=== PATIENT | male | born 1955 | race Caucasian/White ===

== ENCOUNTER → 2020-06-30 12:44 | Outpatient (CLI) | payer OTHER, SELFPAY ==
--- NOTE | ~2020-06-30 | US_ITS ---
EXAMINATION: US retroperitoneal comp DATE: 06/30/2020 13:01 INDICATION: Chronic kidney disease, stage IIIa. TECHNIQUE: Multiple ultrasound grayscale images of the kidneys were obtained. COMPARISON: None. FINDINGS: The right kidney measures 10.0 x 4.2 x 5.2 cm. The left kidney measures 11.1 x 5.4 x 5.1 cm. The kidn eys demonstrate normal parenchymal echogenicity. There is no hydronephrosis. The bladder is normal. IMPRESSION: 1. Normal kidneys. No hydronephrosis. Reviewed, dictated and finalized at location A. [facility]
== END ==
PROVIDERS: PCP Internal Medicine; Visit Provider Internal Medicine
DX: N18.31 Chronic kidney disease, stage 3a (principal)
CPT/HCPCS: 76770

== ENCOUNTER → 2021-03-02 03:22 | Outpatient (CLI) | payer OTHER, SELFPAY ==
[2021-03-02 19:59] LABS: SARS-CoV-2 RNA PCR Negative
== END ==
PROVIDERS: PCP Internal Medicine; Visit Provider Internal Medicine Gastroenterology
DX: Z01.812 Encounter for preprocedural laboratory examination (principal); Z20.822 Contact with and (suspected) exposure to COVID-19
CPT/HCPCS: C9803; U0003; U0005

== ENCOUNTER 2021-03-05 00:38 | Day surgery (SDC) | payer OTHER, SELFPAY ==
[2021-02-18 13:30] VITALS: BMI 25.8
[2021-03-05 06:21] VITALS: BP 152/77; PULSE 51; RESP 18; TEMP 36.6; O2SAT 99
[2021-03-05] MEDS: LACTATED RINGERS 1,000 ML 150 ML IV CONT (06:31)
[2021-03-05 06:34] LABS: Glucose Point of Care 132 mg/dl (65-105)
--- NOTE | 2021-03-05 07:23 | WPDANESEPPF ---
Anes - Initial Pre Proc Eval Procedure: Operation Date: 03/05/21 07:30 Proposed Procedures p Screening Colonoscopy - Jean Claude Raya MD Date/Time: 03/05/21 07:23 Surgeon: Jean Claude Raya MD Pre Op Diagnosis: noeplasm screening Patient Data Age: 66 Gender: M Height: 1.73 m Weight: 77.5 kg Last Vital Signs Temp 97.9 F 03/05/21 06:21 Pulse 51 L 03/05/21 06:21 Resp 18 03/05/21 06:21 BP 152/77 H 03/05/21 06:21 Pulse Ox 99 03/05/21 06:21 Allergies Allergy/AdvReac Type Severity Reaction Status Date / Time No Known Allergies Allergy Verified 03/05/21 06:19 Home Medications Medication Instructions Recorded Confirmed Type ascorbic acid (vitamin C) 1,000 mg 1 gm PO DAILY 04/19/19 02/18/21 History tablet brinzolamide 1 %-brimonidine 0.2 % 1 drop EACH EYE BID 04/19/19 02/18/21 History eye drops,suspension lutein 25 mg-zeaxanthin 5 mg 1 cap PO DAILY 04/19/19 02/18/21 History capsule magnesium 250 mg tablet 250 mg PO DAILY 04/19/19 02/18/21 History zinc gluconate 100 mg tablet 100 mg PO DAILY 04/19/19 02/18/21 History cholecalciferol (vitamin D3) 50 50 mcg PO DAILY 10/18/19 02/18/21 History mcg (2,000 unit) capsule simvastatin 40 mg tablet 40 mg PO DAILY #90 tablet 06/25/20 02/18/21 Rx levothyroxine 75 mcg tablet 75 mcg PO DAILY #90 tablet 12/22/20 02/18/21 Rx amlodipine 2.5 mg tablet 2.5 mg PO DAILY #90 tablet 12/25/20 02/18/21 Rx fenofibrate 160 mg PO DAILY 02/18/21 02/18/21 History lisinopril 40 mg PO DAILY 02/18/21 02/18/21 History metformin 1,000 mg PO BID 02/18/21 02/18/21 History travoprost 1 drp EACH EYE HS 02/18/21 02/18/21 History Laboratory Tests 03/05/21 06:32 POC Capillary Glucose 132 mg/dl H mg/dl (65-105) Patient hx anesthesia problems: none Family hx anesthesia problems: none Results Review: All pre-operative results and documents have been reviewed as part of the pre-operative evaluation. [facility] Family History Family History (System 04/19/19 @ 09:07 by Debra Marion) Mother Diabetes mellitus Family history of glaucoma Hypertension Family history of malignant neoplasm Patient's mother is , Onset Age: 78 Father Family history of elevated blood lipids Family history of Parkinson's disease Grandparent Malignant neoplasm of prostate Family history of coronary artery disease Social History Social History (Updated 12/25/20 @ 09:20 by Makayla Carlos CNA) Smoking status: Never smoker Second hand tobacco smoke exposure: No Alcohol intake: current Drinks per week: 1 Substance use: never Living arrangements: alone Spiritual care concerns: No Anes - Eval Final PreProcedure Day of Procedure 03/05/21 07:23 Patient weight: normal Heart: regular rate and rhythm Lungs: clear to auscultation Airway: Mallampati scale class II Neurological: alert and oriented Last oral intake: >/= 8 hours ASA classification: III Emergent: no Anesthetic plan: proceed Anesthesia type and monitoring: general GIVS and standard monitoring Results Review: All pre-operative results and documents have been reviewed as part of the pre-operative evaluation. Informed Consent: The patient's anesthetic plan and its attendant risks and benefits were discussed with the patient/family/POA. Questions were solicited and answers provided to the satisfaction of the patient/family/POA.
--- NOTE | 2021-03-05 07:25 | WPDGICN ---
Assessment and Plan Assessment and plan (1) Encounter for screening colonoscopy: Code(s): Z12.11 - Encounter for screening for malignant neoplasm of colon Status: Acute Assessment and Plan: Patient presents for screening colonoscopy today. He appears to be at average risk for colon polyps. Further recommendations will be given after endoscopy. GI Consult Note Consult date/time: 03/05/21 07:25 HPI: Delano Kyle is a 66 year old male Presents for screening colonoscopy. Patient reports that his current weight appetite and bowel movements are normal. He denies abdominal pain. He has had no bleeding. Family history is noncontributory. His last colonoscopy was 10 years ago. [facility] Family History Family History (System 04/19/19 @ 09:07 by Debra Marion) Mother Diabetes mellitus Family history of glaucoma Hypertension Family history of malignant neoplasm Patient's mother is , Onset Age: 78 Father Family history of elevated blood lipids Family history of Parkinson's disease Grandparent Malignant neoplasm of prostate Family history of coronary artery disease Social History Social History (Updated 12/25/20 @ 09:20 by Makayla Carlos CNA) Smoking status: Never smoker Second hand tobacco smoke exposure: No Alcohol intake: current Drinks per week: 1 Substance use: never Living arrangements: alone Spiritual care concerns: No Meds Home Medications and Allergies Home Medications Medication Instructions Recorded Confirmed Type ascorbic acid (vitamin C) 1,000 mg 1 gm PO DAILY 04/19/19 02/18/21 History tablet brinzolamide 1 %-brimonidine 0.2 % 1 drop EACH EYE BID 04/19/19 02/18/21 History eye drops,suspension lutein 25 mg-zeaxanthin 5 mg 1 cap PO DAILY 04/19/19 02/18/21 History capsule magnesium 250 mg tablet 250 mg PO DAILY 04/19/19 02/18/21 History zinc gluconate 100 mg tablet 100 mg PO DAILY 04/19/19 02/18/21 History cholecalciferol (vitamin D3) 50 50 mcg PO DAILY 10/18/19 02/18/21 History mcg (2,000 unit) capsule simvastatin 40 mg tablet 40 mg PO DAILY #90 tablet 06/25/20 02/18/21 Rx levothyroxine 75 mcg tablet 75 mcg PO DAILY #90 tablet 12/22/20 02/18/21 Rx amlodipine 2.5 mg tablet 2.5 mg PO DAILY #90 tablet 12/25/20 02/18/21 Rx fenofibrate 160 mg PO DAILY 02/18/21 02/18/21 History lisinopril 40 mg PO DAILY 02/18/21 02/18/21 History metformin 1,000 mg PO BID 02/18/21 02/18/21 History travoprost 1 drp EACH EYE HS 02/18/21 02/18/21 History Allergies Allergy/AdvReac Type Severity Reaction Status Date / Time No Known Allergies Allergy Verified 03/05/21 06:19 Vital Signs Vital Signs - 24 hr 03/05/21 06:21 Temperature 97.9 F Pulse Rate 51 L Respiratory Rate 18 Blood Pressure 152/77 H Pulse Oximetry 99 Exam Narrative: Physical exam reveals patient be alert. Vital signs stable. HEENT exam is unremarkable. Patient is anicteric. Lungs are clear to auscultation and percussion. Heart is without murmur or extra sounds. Abdominal exam bowel sounds are present soft nontender with no hepatosplenomegaly. Digital external rectal exam is normal.
[2021-03-05 07:44] VITALS: BP 114/78; PULSE 53; RESP 18; O2SAT 97
[2021-03-05 07:54] VITALS: BP 117/83; PULSE 53; RESP 15; O2SAT 97
[2021-03-05 08:04] VITALS: BP 138/81; PULSE 49; RESP 13; O2SAT 98
== END 2021-03-05 08:14 | disposition home or self-care (01) ==
PROVIDERS: PCP Internal Medicine; Visit Provider Internal Medicine Gastroenterology
PROC: 0DJD8ZZ Inspection of Lower Intestinal Tract, Via Natural or Artificial Opening Endoscopic (ICD-10-PCS; CPT 45378; principal; 2021-03-05 07:30)
DX: Z12.11 Encounter for screening for malignant neoplasm of colon (principal); K64.8 Other hemorrhoids; E03.9 Hypothyroidism, unspecified; Z79.84 Long term (current) use of oral hypoglycemic drugs
CPT/HCPCS: G0121; 82948; C9803; J2704; J7120; U0003; U0005

== ENCOUNTER → 2021-09-29 11:05 | Outpatient (CLI) | payer OTHER, SELFPAY ==
--- NOTE | ~2021-09-29 | CT_ITS ---
EXAMINATION: CT abdomen pelvis wo con DATE: 09/29/2021 11:16 INDICATION: Hematuria TECHNIQUE: Computed tomography (CT) of the abdomen and pelvis was performed without intravenous contr ast. Automated exposure control and iterative reconstruction technique were employed. The dose-length product was 353.42 mGy-cm. COMPARISON: None FINDINGS: Lung bases are clear. Heart size is normal. No pericardial or pleural effusion. 8 cm cyst at the dome of the liver. There are few additional smaller hepatic cysts or complex largest measuring 1.5 cm. Ga llbladder, pancreas and bilateral adrenal glands are normal. Multiple splenic calcifications consiste nt with old granulomatous disease. Mild left hydroureteronephrosis which extends to the ureterovesicu lar junction with no evident obstructing stone. There does appear to be diffuse bladder wall thickeni ng which is most prominent in the left trigonal region and could not exclude malignancy. Right kidney and ureter are normal. No urolithiasis. Prostatomegaly. No abnormal bowel wall thickening or obstruc tion. Bilateral fat-containing inguinal hernias, small and direct on the right and moderate sized and direct on the left. No free intraperitoneal gas or fluid. No pathologically enlarged abdominal or pe lvic lymphadenopathy. Mild to moderate degenerative skeletal changes in the spine and pelvis. IMPRESSION: 1. No urolithiasis. Mild left hydroureteronephrosis which extends to the left ureterovesicular juncti on where there is some asymmetric wall thickening at the left trigonal region of the bladder raising concern for urothelial carcinoma. Recommend cystoscopy for further evaluation. 2. Bilateral fat-containing direct inguinal hernias, small on the right and moderate-sized on the lef t. 3. Prostatomegaly. Reviewed, dictated and finalized at location B. IMPRESSION: 1. No urolithiasis. Mild left hydroureteronephrosis which extends to the left u reterovesicular junction where there is some asymmetric wall thickening at the left trigonal region of the bladder raising concern for urothelial carcinoma. R ecommend cystoscopy for further evaluation. 2. Bilateral fat-containing direct inguinal hernias, small on the right and mod erate-sized on the left. 3. Prostatomegaly.
== END ==
PROVIDERS: PCP Internal Medicine; Visit Provider Internal Medicine
DX: R31.9 Hematuria, unspecified (principal)
CPT/HCPCS: 74176

== ENCOUNTER 2021-10-08 09:02 | Outpatient (CLI) | payer OTHER, SELFPAY ==
--- NOTE | 2021-10-08 09:16 | ECG_ITS ---
Measurements Intervals Bath Rate: 47 P: 56 UT: 143 QRS: 26 QRSD: 90 T: 28 QT: 416 QTc: 370 Interpretive Statements SINUS BRADYCARDIA BASELINE ARTIFACT BORDERLINE ECG NO PREVIOUS ECG AVAILABLE FOR COMPARISON Electronically Signed On 10-08-2021 17:46:00 CDT by Yon Bernal M.D.
[2021-10-08 09:40] LABS: Basophils Absolute Auto 0.1 K/mm3 (0.0-0.1); Basophils Percent Auto 1.5 % (0.2-1.2); Eosinophils Absolute Auto 0.2 K/mm3 (0-0.3); Eosinophils Percent Auto 3.5 % (0-4.4); Hematocrit 45.9 % (42.0-52.0); Hemoglobin 14.8 g/dL (14.0-18.0); Immature Granulocyte Absolute 0.04 K/mm3 (0.00-0.031); Immature Granulocyte Percent A 0.7 % (0-0.5); Lymphocytes Percent Auto 32.7 % (18.3-44.2); Mean Corpuscular HGB Conc 32.2 g/dl (32-36); Mean Corpuscular Hemoglobin 29.8 pg (26-34); Mean Corpuscular Volume 92.5 fl (80-100); Mean Platelet Volume 9.9 fl (7.4-10.4); Monocytes Absolute Auto 0.6 K/mm3 (0.1-0.6); Monocytes Percent Auto 10.2 % (2.6-8.5); Neutrophils Absolute Auto 2.8 K/mm3 (1.3-6.7); Neutrophils Percent Auto 51.4 % (45.5-73.1); Platelet Count Result 212 k/mm3 (150-375); Red Blood Count 4.96 M/mm3 (4.6-6.20); Red Cell Distribution Width 12.4 % (11.5-14.5); White Blood Count 5.5 K/mm3 (4.5-10.0)
[2021-10-08 09:51] LABS: Prothrombin Time 12.6 Seconds (11.1-14.7)
[2021-10-08 09:52] LABS: Partial Thromboplastin Time 26.3 SECONDS (22.3-36.8)
[2021-10-08 09:55] LABS: Anion Gap 7 mmol/L (8-16); Blood Urea Nitrogen 23 mg/dL (9-20); Calcium 9.3 mg/dL (8.4-10.2); Carbon Dioxide 27 mmol/L (22-30); Chloride 105 mmol/L (98-107); Estimated Glomerular Filt Rate > 60; Glucose 115 mg/dL (65-110); Potassium 4.4 mmol/L (3.4-5.0); Sodium 139 mmol/L (137-145)
== END 2021-10-08 09:03 | disposition home or self-care (01) ==
LOC: ANHSURGERY 09:05
PROVIDERS: PCP Internal Medicine; Visit Provider Urology
DX: N32.9 Bladder disorder, unspecified (principal); I10 Essential (primary) hypertension; Z01.818 Encounter for other preprocedural examination; R94.31 Abnormal electrocardiogram [ECG] [EKG]
CPT/HCPCS: 36415; 80048; 85025; 85610; 85730; 93005

== ENCOUNTER 2021-10-12 07:31 | Outpatient (CLI) | payer OTHER, SELFPAY ==
--- NOTE | ~2021-10-12 | CT_ITS ---
EXAMINATION: CT abdomen pelvis wo/w con DATE: 10/12/2021 08:05 INDICATION: Gross hematuria TECHNIQUE: Computed tomography (CT) of the abdomen and pelvis was performed without and subsequently with 130 CC Omnipaque 350 intravenous contrast. Automated exposure control and iterative reconstructi on technique were employed. Exam dose: 865.39 mGy-cm total exam DLP. COMPARISON: 09/25/2021 CT abdomen pelvis FINDINGS: The lung bases are clear. Normal heart size. No pericardial or pleural effusion. Scattered hepatic cysts are again noted including approximately 8 cm hepatic dome cyst. The gallbladder is present and appears unremarkable. No bile duct or pancreatic duct dilatation. No p ancreatic mass lesion or calcification. There are multiple calcified splenic granulomas consistent wi th old granulomatous disease. Normal splenic size. Normal morphology of the adrenal glands. Prostate enlargement and calcifications. There is diffuse thickening of the urinary bladder wall, pos sibly due to bladder outlet obstruction due to prostatomegaly. In addition, there is irregular soft tissue thickening along the posterior mid and left posterolatera l urinary bladder wall, apparently obstructing the distal left ureter with moderate left hydrouretero nephrosis as result. Urothelial bladder carcinoma is suspected. Differential diagnosis includes prost ate cancer. There are couple of left renal cortical cysts, the larger measuring up to 5.7 mm. No renal space occu pying mass lesion is noted otherwise. No urinary tract calculus is noted. Normal caliber of the abdominal aorta and iliac arteries. No intraperitoneal or retroperitoneal or pe lvic mass lesion or adenopathy or ascites is noted otherwise. Bilateral fat-containing inguinal hernias, left larger than right. Small fat-containing umbilical her mitzi. Normal appendix. No bowel obstruction, bowel wall thickening, pneumatosis or intraperitoneal free air . Diffuse idiopathic skeletal hyperostosis of the thoracic spine. Degenerative change at the apophyseal joints of the lumbar spine with associated grade 1 anterolisthe sis at L4-5. Bilateral hip osteoarthritis. No suspicious osteolytic or osteoblastic lesions are noted. IMPRESSION: Irregular soft tissue thickening of the posterior mid and posterolateral left urinary bl adder wall, likely due to urothelial bladder cancer; differential diagnosis is prostate cancer Prostate enlargement and calcifications Small left renal cortical cysts Bilateral inguinal hernias, small fat containing umbilical hernia Hepatic cysts Reviewed, dictated and finalized at Location A. Reviewed, dictated and finalized at location A. IMPRESSION: Irregular soft tissue thickening of the posterior mid and posterol ateral left urinary bladder wall, likely due to urothelial bladder cancer; diff erential diagnosis is prostate cancer Prostate enlargement and calcifications Small left renal cortical cysts Bilateral inguinal hernias, small fat containing umbilical hernia Hepatic cysts
== END 2021-10-12 07:32 | disposition home or self-care (01) ==
PROVIDERS: PCP Internal Medicine; Visit Provider Urology
DX: R31.0 Gross hematuria (principal); K76.89 Other specified diseases of liver; K40.90 Unilateral inguinal hernia, without obstruction or gangrene, not specified as recurrent; N28.1 Cyst of kidney, acquired
CPT/HCPCS: 74178; Q9967

== ENCOUNTER 2021-10-14 14:13 | Inpatient (IN) | payer OTHER, SELFPAY ==
[2021-10-07 13:53] VITALS: BMI 25.8
--- NOTE | 2021-10-07 14:11 | PC.NURSE ---
Report to the Outpatient Waiting Room, entrance under the green pavilion located off [facility], at time ___7:30____ on date __10/13/21 . OR Time: __9:30AM . - You and your visitor will be asked a series of questions to screen for COVID 19 for your protection. - Only one visitor is allowed at this time. - The patient visitor is requested to leave or wait in car when not with patient. - A mask is required within the hospital. Patients may have clear liquids (water, carbonated beverages, clear teas, apple juice) until 3 hours prior to surgery with a maximum of 20 ounces. - No food from midnight until time of surgery - Infants may have breast milk until 4 hours before surgery, formula 6 hours prior to surgery. - Children will be allowed to drink immediately following surgery. If applicable, please bring a bottle or sippy cup to assist with drinking. Juice, water, soda, and popsicles are readily available. For infants on formula, please bring formula the day of surgery. Pacifiers are allowed. Take the following medications with a SIP of water the morning of surgery: __EYE DROPS, LEVOTHYROXINE Medications to discontinue per physician ___HOLD ALL VITAMINS/SUPPLEMENTS 7 DAYS PRE-OP PER DR ABARCA Date to take last dose 10/06/21 Please no make-up, nail english, hairspray, perfume, deodorant, or body powder the day of surgery. No jewelry (including any body piercings) or valuables the day of surgery, leave them at home. Please take a shower or bath the night before, or the morning of, surgery with an antibacterial soap. Wear comfortable, loose fitting clothing. Children are encouraged to wear pajamas. - Jewelry must be removed prior to entering the operating room. Rings and piercings that are not removed may be cut off. - The hospital will not accept responsibility for valuables. - Please leave all valuables, including medications, at home the day of surgery. If you are going home after surgery, a licensed full service vending driver must drive you home. - NO public transportation without another adult. - We recommend that an adult stay with you for 24 hours following discharge. - We also recommend that you do not drive, make important decision, drink alcoholic beverages, or take any drugs that were not prescribed by your health care provider for at least 24 hours after your discharge time. For Pediatric surgeries, we recommend two adults accompany the child home (only one inside the building at this time). Follow any additional instructions given to you from your surgeon. If you or anyone in your household have experienced Covid symptoms in the past week, please notify your surgeon or the nurse liaison at the phone number below for possible testing. Telephone instructions given to __PATIENT and asked if any additional questions and then verbalized understanding. Patient advised to call surgeon office or pre surgery nurse liaison [phone] if any additional questions.
--- NOTE | 2021-10-12 13:43 | WPDANESEPPF ---
Anes - Initial Pre Proc Eval Procedure: Operation Date: 10/13/21 09:30 Proposed Procedures p Trans Urethral Resection Bladder Tumor, - Eugene Schmitz MD s Cystoscopy, Left Retrograde Pyelogram, Possible Left Ureteroscopy with Left Stent Placement - Eugene Schmitz MD Date/Time: 10/12/21 13:43 Surgeon: Eugene Schmitz MD Pre Op Diagnosis: bladder lesion, gross hematuria Patient Data Age: 66 Gender: M Height: 1.73 m Weight: 77 kg Allergies Allergy/AdvReac Type Severity Reaction Status Date / Time No Known Allergies Allergy Verified 10/13/21 07:44 Home Medications Medication Instructions Recorded Confirmed Type ascorbic acid (vitamin C) 1,000 mg 1 gm PO DAILY 04/19/19 10/07/21 History tablet brinzolamide 1 %-brimonidine 0.2 % 1 drop ophthalmic (eye) BID 04/19/19 10/13/21 History eye drops,suspension (Simbrinza) lutein 25 mg-zeaxanthin 5 mg 1 cap PO DAILY 04/19/19 10/07/21 History capsule magnesium 250 mg tablet 250 mg PO DAILY 04/19/19 10/07/21 History zinc gluconate 100 mg tablet 100 mg PO DAILY 04/19/19 10/07/21 History cholecalciferol (vitamin D3) 50 50 mcg PO DAILY 10/18/19 10/07/21 History mcg (2,000 unit) capsule travoprost 0.004 % eye drops 1 drp EACH EYE HS 02/18/21 10/07/21 History simvastatin 40 mg tablet 40 mg PO DAILY #90 tabs 06/09/21 10/07/21 Rx metformin 500 mg tablet 1,000 mg PO BID #360 tabs 06/30/21 10/07/21 Rx fenofibrate 160 mg tablet 160 mg PO DAILY #90 tabs 08/07/21 10/07/21 Rx levothyroxine 75 mcg tablet 75 mcg PO QAM 10/07/21 10/07/21 History lisinopril 40 mg tablet 40 mg PO QAM 10/07/21 10/07/21 History Patient hx anesthesia problems: none Family hx anesthesia problems: none Results Review: All pre-operative results and documents have been reviewed as part of the pre-operative evaluation. [facility] Past Medical History Medical History (Updated 10/12/21 @ 13:45 by Dieter Randolph MD) CKD (chronic kidney disease) stage 3, GFR 30-59 ml/min Diabetes Dyslipidemia Essential hypertension Glaucoma Hematuria Hypothyroidism Lesion of bladder Family History Family History Mother Diabetes mellitus Family history of glaucoma Hypertension Family history of malignant neoplasm Patient's mother is , Onset Age: 78 Father Family history of elevated blood lipids Family history of Parkinson's disease Grandparent Malignant neoplasm of prostate Family history of coronary artery disease Social History Social History Smoking status: Never smoker Second hand tobacco smoke exposure: No Alcohol intake: current Drinks per week: 1 Substance use: never Living arrangements: alone Spiritual care concerns: No Anes - Eval Final PreProcedure Day of Procedure 10/12/21 13:43 Patient weight: normal Heart: regular rate and rhythm Lungs: clear to auscultation Airway: Mallampati scale class II Neurological: alert and oriented Last oral intake: >/= 8 hours ASA classification: III Emergent: no Anesthetic plan: proceed Anesthesia type and monitoring: general LMA and standard monitoring Results Review: All pre-operative results and documents have been reviewed as part of the pre-operative evaluation. Informed Consent: The patient's anesthetic plan and its attendant risks and benefits were discussed with the patient/family/POA. Questions were solicited and answers provided to the satisfaction of the patient/family/POA.
[2021-10-13] VITALS (15 sets, daily range): BP systolic 104–165; BP diastolic 53–74; PULSE 46–76; RESP 14–20; TEMP 35.4–37.7; O2SAT 94–100; BMI 25.5
--- NOTE | 2021-10-13 07:09 | WPDHPUPDATE1 ---
History and Physical Update Update Date/Time: 10/13/21 07:09 History and Physical has been reviewed, including an updated exam of the patient. There are NO changes in the patient's condition. Risks, benefits, and alternatives have been discussed and questions answered. Patient agrees to proceed with procedure. Proceed with cysto, left retrograde, possible left ureteroscopy with stent placement.
[2021-10-13 07:42] LABS: Glucose Point of Care 118 mg/dl (65-105)
[2021-10-13] MEDS: LACTATED RINGERS 1,000 ML 30 ML IV CONT ×2 (07:51→10:02)
[2021-10-13] MEDS: ceFAZolin 2 GM/D5W 50 ML 2 GM/50 ML BAG IVPB (08:56)
[2021-10-13] MEDS: LIDOCAINE HCL 2% GEL UROJET 10 ML PKG MUCOUS MEM (09:37)
--- NOTE | 2021-10-13 09:58 | W.PM.PROC2 ---
Procedure Note - Detailed Date of Procedure 10/13/21 Pre-op Diagnosis bladder lesion, gross hematuria, left hydronephrosis Post-op Diagnosis Same Procedure Performed Cysto, transurethral section of bladder tumor large area, left retrograde pyelogram, left ureteral stent placement 6 Scottish contour Surgeon Eugene Schmitz MD Anesthesia General Description of Procedure Patient is taken the operative suite correctly identified. Once anesthesia was obtained was placed in dorsal lithotomy position and prepped and draped usual sterile fashion. Twenty-four Scottish resectoscope sheath inserted in the bladder. The bladder is inspected entirety. He has a tumor overlying the left ureteral orifice extending to the left lateral wall, along the mid trigone area, and near the bladder neck. The ureteral orifices not visualized. We resected all visible tumor. We were able to unroof the left ureteral orifice. We were able to manipulate a guidewire into it and advanced a [place] catheter. Pyelogram was then performed to confirm placement of the stent. Six Scottish contour stent was then placed with the proximal end coiled in the renal pelvis and the distal in the bladder. We then fulgurated the base of the tumor of any vessels that were oozing or bleeding. There appeared to be fairly good hemostasis. Bladder was drained. 2% viscous lidocaine was inserted urethra. [address] was placed with 15 cc in the balloon. This was connected to continuous bladder irrigation and patient is taken recovery stable condition. He will be admitted for CBI. Stent will need to be remain in place for approximately 6 weeks time. Will make a decision regarding removal in the OR with left ureteroscopy and retrograde pyelogram. Estimated Blood Loss 25 Drains Yes (Six Scottish contour left ureteral stent) Packing No Pathology Yes Complications No immediate complications Condition Stable Disposition PACU
[2021-10-13] MEDS: fentaNYL CITRATE INJ (*CRX) 100 MCG/2 ML VIAL 25 MCG IV PUSH ×8 (10:21→11:08)
[2021-10-13 10:43] LABS: Glucose Point of Care 155 mg/dl (65-105)
[2021-10-13] MEDS: KETOROLAC 30 MG/ML VIAL (*BKC) IV PUSH (11:05)
--- NOTE | 2021-10-13 12:01 | ADMGEN ---
This patient, Delano Kyle, was admitted to Medical Room 346-01. Patient/family oriented to hospital policies and general routines including ID bracelet, bed and alarms, visiting hours, pain management, procedures, bathroom and other care routines, personal items, smoking policy, room service/diet, and visiting hours. Information on how to activate the Rapid Response Team has been discussed. Patient/Family are encouraged to report perceived risks to care and to ask questions if they do not understand what they are told or what they should do.
[2021-10-13] MEDS: lisinopriL 20 MG TABLET 40 MG PO (12:37)
[2021-10-13] MEDS: SIMVASTATIN 20 MG TABLET 40 MG PO (12:37)
[2021-10-13 12:44] LABS: Glucose Point of Care 117 mg/dl (65-105)
[2021-10-13 16:29] LABS: Glucose Point of Care 139 mg/dl (65-105)
[2021-10-13] MEDS: metFORMIN HCL 500 MG TABLET 1000 MG PO (17:17)
[2021-10-13] MEDS: DOCUSATE SODIUM 100 MG CAPSULE PO (17:17)
[2021-10-13] MEDS: SODIUM CHLORIDE 0.9% IV 250 ML 10 ML (17:30)
[2021-10-13 20:57] LABS: Glucose Point of Care 81 mg/dl (65-105)
--- NOTE | ~2021-10-14 | XR_ITS ---
EXAMINATION: XR retrograde pyelo w/stent LT DATE: 10/13/2021 09:56 INDICATION: Left internal ureteral stent placement TECHNIQUE: Fluoroscopic images from a left internal ureteral stent placement are submitted for review . 17 seconds of fluoroscopy time. 2 fluoroscopic images FINDINGS: There is a left double-J internal ureteral stent projecting in expected position, with proximal [place] loop at the level of the renal pelvis and distal loop in the pelvis within the bladder lumen. IMPRESSION: 1. Left internal ureteral stent placement. Please refer to real-time procedural findings for detail s. Reviewed, dictated and finalized at location B. IMPRESSION: 1. Left internal ureteral stent placement. Please refer to real-time procedur al findings for details.
[2021-10-14 01:04] VITALS: BP 99/56; PULSE 50; RESP 16; TEMP 37.2; O2SAT 98
[2021-10-14 02:33] VITALS: BP 107/59
[2021-10-14 05:20] VITALS: BP 112/62; PULSE 48; RESP 16; TEMP 37.2; O2SAT 96
[2021-10-14] MEDS: LEVOTHYROXINE SODIUM 75 MCG TABLET PO (05:53)
[2021-10-14] MEDS: SIMVASTATIN 20 MG TABLET 40 MG PO (08:17)
[2021-10-14] MEDS: CEPHALEXIN 500 MG CAPSULE PO ×4 (08:18→20:00)
[2021-10-14] MEDS: metFORMIN HCL 500 MG TABLET 1000 MG PO ×2 (08:18→16:53)
[2021-10-14] MEDS: DOCUSATE SODIUM 100 MG CAPSULE PO ×2 (08:18→16:54)
[2021-10-14] MEDS: lisinopriL 20 MG TABLET 40 MG PO (08:18)
[2021-10-14 08:28] LABS: Glucose Point of Care 177 mg/dl (65-105)
--- NOTE | 2021-10-14 09:09 | WPDANESPN ---
Anes - Prog Note Post-Op Date/Time: 10/14/21 09:09 Cardiovascular status: normal Respiratory status: normal Airway patency: baseline Mental status: baseline Post-Op hydration status: normal Vital Signs: Last Vital Signs Temp 37.2 C 10/14/21 05:20 Pulse 48 L 10/14/21 05:20 Resp 16 10/14/21 05:20 BP 112/62 10/14/21 05:20 Pulse Ox 96 10/14/21 05:20 O2 Del Method Room Air 10/14/21 08:00 O2 Flow Rate 8 10/13/21 10:02 Pain Score (VAS): 2 I/O: Intake & Output 10/13/21 10/14/21 10/14/21 23:59 07:59 15:59 Intake Total 1100 550 360 Output Total 1350 1650 Balance -250 -1100 360 10/13/21 10/13/21 10/13/21 10:41 12:41 16:23 POC Capillary Glucose 155 H 117 H 139 H 10/13/21 10/14/21 20:53 08:21 POC Capillary Glucose 81 177 H Patient Feedback: Patient satisfied with anesthetic care.
[2021-10-14 10:22] VITALS: BP 122/73; PULSE 51; RESP 16; TEMP 36.8; O2SAT 97
[2021-10-14 11:36] LABS: Glucose Point of Care 110 mg/dl (65-105)
--- NOTE | 2021-10-14 13:04 | WPDUROPN2 ---
Progress Note: A&P Assessment and Plan (1) Lesion of bladder: Code(s): N32.9 - Bladder disorder, unspecified Status: Acute Assessment and Plan: Pathology pending. Patient will be notified of pathology in 3-5 days when resulted. He will keep his left stent in place for 6 weeks, then we will schedule a ureteroscopy with Dr. Schmitz at that time. I answered all of his questions, we will keep him on CBI until urine clears then taper CBI off. IF urine remains clear off CBI with activity, ok to keep off. Will re-assess tomorrow morning for discharge. (2) Hematuria: Qualifiers: Hematuria type: asymptomatic microscopic Qualified Code(s): R31.21 - Asymptomatic microscopic hematuria Code(s): R31.9 - Hematuria, unspecified Status: Acute Subjective Subjective Date/Time Seen: 10/14/21 13:04 The patient is doing well s/p Cystoscopy, TURBT and left retrograde pyelogram with stent placement. He is tolerating his hendricks, pain and diet well. He is up in the chair and has been moving around in his room without difficulty. He is currently on slow CBI, the CBI was turned off this morning but his urine quickly became bloody again, therefore CBI was restarted. Post Op day: 1 Review of Systems Constitutional: Constitutional: Denies fever(s), Denies lethargy and Denies weakness Cardiovascular: Cardiovascular: Denies chest pain Respiratory: Respiratory: Reports no additional respiratory complaints Gastrointestinal: Gastrointestinal: Denies abdominal pain, Denies nausea and Denies vomiting Genitourinary: Genitourinary: Reports hematuria and Denies flank pain Exam Const: General: comfortable, no acute distress, alert and Physically active Resp: Effort & Inspection: normal respiratory effort Cardio: Rate: regular rate GI: GI Palp: Yes Soft to palpation and No Tenderness to palpation present (GI) : General: Yes no CVA tenderness Urinary Catheter: Urinary Catheter: patent and draining, urine clear and urine pink Extrem: Right lower extremity: no edema Left lower extremity: no edema Objective Data Vital Signs Vital Signs: Vital Signs - 24 hr 10/13/21 13:35 10/13/21 17:35 10/13/21 20:00 Temperature 98.3 F 96 F L Pulse Rate 66 61 Respiratory Rate 16 16 Blood Pressure 125/53 L 127/64 Pulse Oximetry 100 100 Oxygen Delivery Room Air 10/13/21 22:00 10/13/21 23:26 10/14/21 01:04 Temperature 99.8 F H 97.9 F 98.9 F Pulse Rate 54 L 50 L Respiratory Rate 18 16 Blood Pressure 104/58 L 99/56 L Pulse Oximetry 96 98 Oxygen Delivery 10/14/21 02:33 10/14/21 05:20 10/14/21 08:00 Temperature 99.0 F Pulse Rate 48 L Respiratory Rate 16 Blood Pressure 107/59 L 112/62 Pulse Oximetry 96 Oxygen Delivery Room Air 10/14/21 10:22 Temperature 98.2 F Pulse Rate 51 L Respiratory Rate 16 Blood Pressure 122/73 Pulse Oximetry 97 Oxygen Delivery Intake/Output Intake/Output: Intake & Output 10/11/21 10/12/21 10/13/21 10/14/21 23:59 23:59 23:59 23:59 Intake Total 1350 1150 Output Total 5550 1650 Balance -4200 -500 Meds/Results Medications: Active Medications Generic Name Dose Route Start Last Admin Trade Name Freq PRN Reason Stop Dose Admin Hydrocodone Bitart/Acetaminophen 1 tab 10/13/21 11:35 Hydrocodone/Acetaminophen (*Crx) 5-325 Mg Tablet PO Q4H PRN Pain Rated 1-6 Cephalexin HCl 500 mg 10/14/21 09:00 10/14/21 08:18 Cephalexin 500 Mg Capsule PO 500 mg QID TAMRA Administration Docusate Sodium 100 mg 10/13/21 17:00 10/14/21 08:18 Docusate Sodium 100 Mg Capsule PO 100 mg BID TAMRA Administration Hyoscyamine 0.125 mg 10/13/21 11:35 Hyoscyamine Sulfate 0.125 Mg Tablet SUBLINGUAL Q6H PRN Bladder Spasm Levothyroxine Sodium 75 mcg 10/14/21 06:30 10/14/21 05:53 Levothyroxine Sodium 75 Mcg Tablet PO 75 mcg DAILY@0630 TAMRA Administration Lisinopril 40 mg 10/13/21 11:40
[2021-10-14 14:41] VITALS: BP 114/62; PULSE 49; RESP 16; TEMP 36.8; O2SAT 99
--- NOTE | 2021-10-14 15:06 | PC.NURSE ---
Urine draining clear again. Will run the rest of the current saline bag out and see if it turns bloody again. This will be the second attempt today. Patient is doing well, denies pain or discomfort. He was up in the chair the first half of the day. Currently having an afternoon nap.
[2021-10-14 16:40] LABS: Glucose Point of Care 93 mg/dl (65-105)
[2021-10-14 20:41] VITALS: BP 135/68; PULSE 45; RESP 16; TEMP 36.6; O2SAT 99
[2021-10-14 20:49] LABS: Glucose Point of Care 102 mg/dl (65-105)
[2021-10-15 04:54] VITALS: BP 114/66; PULSE 45; RESP 16; TEMP 36.6; O2SAT 97
[2021-10-15] MEDS: LEVOTHYROXINE SODIUM 75 MCG TABLET PO (05:33)
[2021-10-15 07:46] LABS: Glucose Point of Care 124 mg/dl (65-105)
[2021-10-15] MEDS: DOCUSATE SODIUM 100 MG CAPSULE PO ×2 (08:21→16:44)
[2021-10-15] MEDS: CEPHALEXIN 500 MG CAPSULE PO ×4 (08:21→21:15)
[2021-10-15] MEDS: lisinopriL 20 MG TABLET 40 MG PO (08:22)
[2021-10-15] MEDS: metFORMIN HCL 500 MG TABLET 1000 MG PO ×2 (08:22→16:44)
[2021-10-15] MEDS: SIMVASTATIN 20 MG TABLET 40 MG PO (08:22)
[2021-10-15 11:43] LABS: Glucose Point of Care 87 mg/dl (65-105)
[2021-10-15 14:55] VITALS: BP 118/63; PULSE 50; RESP 16; TEMP 36.6; O2SAT 100
--- NOTE | 2021-10-15 16:04 | WPDUROPN2 ---
Progress Note: A&P Assessment and Plan (1) Lesion of bladder: Code(s): N32.9 - Bladder disorder, unspecified Status: Acute Assessment and Plan: Pathology pending. Patient will be notified of pathology in 3-5 days when resulted. He will keep his left stent in place for 6 weeks, then we will schedule a ureteroscopy with Dr. Schmitz at that time. I answered all of his questions, we will keep him on CBI until urine clears then taper CBI off. IF urine remains clear off CBI with activity, ok to keep off. Will re-assess tomorrow morning for discharge. I turned CBI off this morning, but he continued to have gross hematuria off CBI for >4 hours, therefore he will remain on CBI overnight. Subjective Subjective Date/Time Seen: 10/15/21 16:04 S/P TURBT, Cystoscopy and left stent placement with left retrograde. The patient continues to do well, he tolerates diet and activity and c/o no pain. His urine remains bloody off CBI unfortunately. He is having some mild bladder spasms which are tolerable. Post Op day: 2 Review of Systems Respiratory: Respiratory: Reports no additional respiratory complaints Gastrointestinal: Gastrointestinal: Denies abdominal pain, Denies nausea and Denies vomiting Genitourinary: Genitourinary: Reports hematuria, Denies dysuria, Denies flank pain, Denies urinary frequency, Denies urinary hesitancy and Denies urinary urgency Exam Resp: Effort & Inspection: normal respiratory effort Cardio: Rate: regular rate GI: GI Palp: Yes Soft to palpation and No Tenderness to palpation present (GI) : General: Yes no CVA tenderness Urinary Catheter: Urinary Catheter: patent and draining and urine red Objective Data Vital Signs Vital Signs: Vital Signs - 24 hr 10/14/21 19:56 10/14/21 20:41 10/15/21 04:54 Temperature 98 F 98 F Pulse Rate 45 L 45 L Respiratory Rate 16 16 Blood Pressure 135/68 114/66 Pulse Oximetry 99 97 Oxygen Delivery Room Air 10/15/21 08:00 10/15/21 14:55 Temperature 97.8 F Pulse Rate 50 L Respiratory Rate 16 Blood Pressure 118/63 Pulse Oximetry 100 Oxygen Delivery Room Air Intake/Output Intake/Output: Intake & Output 10/12/21 10/13/21 10/14/21 10/15/21 23:59 23:59 23:59 23:59 Intake Total 1350 6261 480 Output Total 6161 4255 725 Balance -4200 2940 -762 Meds/Results Medications: Active Medications Generic Name Dose Route Start Last Admin Trade Name Freq PRN Reason Stop Dose Admin Hydrocodone Bitart/Acetaminophen 1 tab 10/13/21 11:35 Hydrocodone/Acetaminophen (*Crx) 5-325 Mg Tablet PO Q4H PRN Pain Rated 1-6 Cephalexin HCl 500 mg 10/14/21 09:00 10/15/21 12:59 Cephalexin 500 Mg Capsule PO 500 mg QID TAMRA Administration Docusate Sodium 100 mg 10/13/21 17:00 10/15/21 08:21 Docusate Sodium 100 Mg Capsule PO 100 mg BID TAMRA Administration Hyoscyamine 0.125 mg 10/13/21 11:35 Hyoscyamine Sulfate 0.125 Mg Tablet SUBLINGUAL Q6H PRN Bladder Spasm Levothyroxine Sodium 75 mcg 10/14/21 06:30 10/15/21 05:33 Levothyroxine Sodium 75 Mcg Tablet PO 75 mcg DAILY@0630 TAMRA Administration Lisinopril 40 mg 10/13/21 11:40 10/15/21 08:22 Lisinopril 20 Mg Tablet PO 40 mg QAM TAMRA Administration Metformin HCl 1,000 mg 10/13/21 17:00 10/15/21 08:22 Metformin Hcl 500 Mg Tablet PO 1,000 mg BID TAMRA Administration Morphine Sulfate 2 mg 10/13/21 11:35 Morphine Sulfate (*Crx) 2 Mg/Ml Inj IV PUSH Q2H PRN Pain Rated 7-10 Naloxone HCl 0.1 mg 10/13/21 11:35 Naloxone Hcl 0.4 Mg/Ml Vial IV PUSH Q2M PRN Opiate Reversal Ondansetron HCl 4 mg 10/13/21 11:35 Ondansetron Inj 4 Mg/2 Ml Vial IV PUSH Q12H PRN Nausea And Vomiting Simvastatin 40 mg 10/13/21 11:40 10/15/21 08:22 Simvastatin 20 Mg Tablet PO 40 mg DAILY TAMRA Administration Radiology Results: ITS Impressions Retrograde Pyelogram 10/13/21 10:00 IMP
--- NOTE | 2021-10-15 16:16 | PM.DS ---
DS: Admitting Diagnosis Discharge Date bladder lesion Admitting Diagnosis bladder lesion DS: Discharge Diagnosis Discharge Diagnosis Plan bladder lesion DS: Summary Hospital Course Hospital Course: The patient underwent a Cystoscopy with TURBT and left ureteral stent placement with left retrograde pyelogram on 10/13/[address] Schmitz. The patient tolerated the procedure well and was taken to recovery in stable condition. He was then transferred back to the floor for further observation. He has done well recovering since. He is tolerating his diet and activity. His pain is well controlled, however he continues to struggle with post operative gross hematuria, that is resolved with CBI since surgery. The patient's urine has now remained clear after 3 days of CBI and being off CBI for >4 hours. He will be discharged home and to resume activity as tolerated, no straining, resume a diabetic diet, resume all home meds in addition to Ultram, Keflex and Levsin. He will follow up in [address] Schmitz. Time spent discussing smoking cessation with patient: more than 10 minutes Status at Discharge Functional status at discharge: independent ambulation Time Spent with Patient Time attestation: Total time spent providing and/or coordinating discharge services: Time spent: Greater than 30 minutes Exam Const: General: cooperative Resp: Effort & Inspection: normal respiratory effort Cardio: Rate: regular rate GI: GI Palp: Yes Soft to palpation and No Tenderness to palpation present (GI) : General: Yes no CVA tenderness Urinary Catheter: Urinary Catheter: patent and draining and urine clear Extrem: Right lower extremity: no edema Left lower extremity: no edema DS: Data Data Completed and Pending Pending studies at discharge: Pending at discharge 10/13/21 09:14 Surgical [PTH] Routine Labs on day of discharge: Labs from last 24 hours 10/15/21 10/15/21 10/14/21 11:41 07:44 20:47 POC Capillary Glucose 87 124 H 102 10/14/21 16:36 POC Capillary Glucose 93 Discharge Plan Discharge Attending physician on discharge: Eugene Schmitz Discharging Clinician: Michelle Gómez Patient Disposition: Home, Self-Care Activity: no shower Diet: as tolerated Discharge Instructions: You will f/u with Dr. Schmitz on 11/05/21 at 11:30 in the [place] office. Dr. Schmitz will call you with your pathology report results. Your stent will stay in for 6 weeks and the office will call you to schedule the removal after your appointment with Dr. Schmitz. You should follow up on Tuesday10/19/21 at 1045am for hendricks removal in the office with Michelle ALEJANDRE. Patient Instructions: Antibiotic Form, [place] Catheter Placement and Care (DC), Urinary Leg Bag (GEN), How to Change a Catheter Drainage Bag (DC) Stand Alone Forms: General Discharge Information Follow-up/Referrals: Eugene Schmitz MD [Physician] - Discharge Medications: New hyoscyamine sulfate [Anaspaz] 0.125 mg Tablet,Disintegrating 0.125 mg sublingual Q6H PRN (Reason: Bladder Spasm) Qty: 20 0RF tramadol [Ultram] 50 mg tablet 50 mg PO Q6H PRN (Reason: pain) Qty: 20 0RF cephalexin 500 mg capsule 500 mg PO Q12H Qty: 10 0RF Continued cholecalciferol (vitamin D3) 50 mcg (2,000 unit) capsule 50 mcg PO DAILY travoprost 0.004 % drops 1 drp EACH EYE HS levothyroxine 75 mcg tablet 75 mcg PO QAM lisinopril 40 mg tablet 40 mg PO QAM Rx Instructions: TAKE 1 TABLET BY MOUTH EVERY DAY Simbrinza 1-0.2 % drops,suspension 1 drop EACH EYE BID lutein-zeaxanthin 25-5 mg capsule 1 cap PO DAILY zinc gluconate 100 mg tablet 100 mg PO DAILY ascorbic acid (vitamin C) 1,000 mg tablet 1 gm PO DAILY magnesium 250 mg tablet 250 mg PO DAILY simvastatin 40 mg tablet 40 mg PO DAILY Qty: 90 1RF metformin 500 mg tablet 1,000 mg PO BID Qty: 360
[2021-10-15 16:43] LABS: Glucose Point of Care 91 mg/dl (65-105)
[2021-10-15 20:12] VITALS: BP 130/74; PULSE 52; RESP 18; TEMP 36.6; O2SAT 100
[2021-10-15 22:09] VITALS: O2SAT 96
[2021-10-16 06:37] VITALS: BP 132/74; PULSE 44; RESP 18; TEMP 36.9; O2SAT 97
[2021-10-16] MEDS: LEVOTHYROXINE SODIUM 75 MCG TABLET PO (06:54)
[2021-10-16 07:53] VITALS: PULSE 58; O2SAT 95
[2021-10-16 08:08] LABS: Glucose Point of Care 137 mg/dl (65-105)
[2021-10-16] MEDS: DOCUSATE SODIUM 100 MG CAPSULE PO (08:46)
[2021-10-16] MEDS: CEPHALEXIN 500 MG CAPSULE PO (08:46)
[2021-10-16] MEDS: lisinopriL 20 MG TABLET 40 MG PO (08:47)
[2021-10-16] MEDS: metFORMIN HCL 500 MG TABLET 1000 MG PO (08:47)
[2021-10-16] MEDS: SIMVASTATIN 20 MG TABLET 40 MG PO (08:47)
[2021-10-16 11:59] LABS: Glucose Point of Care 97 mg/dl (65-105)
--- NOTE | 2021-10-16 12:06 | WPDUROPN2 ---
Progress Note: A&P Assessment and Plan (1) Lesion of bladder: Code(s): N32.9 - Bladder disorder, unspecified Status: Acute Assessment and Plan: Pathology Pending. (2) Hematuria: Qualifiers: Hematuria type: asymptomatic microscopic Qualified Code(s): R31.21 - Asymptomatic microscopic hematuria Code(s): R31.9 - Hematuria, unspecified Status: Acute Assessment and Plan: Continues to be a problem off CBI. Will keep him off for a few more hours and watch it and decide to turn CBI back on or discharge home. Subjective Subjective Date/Time Seen: 10/16/21 12:06 CYstoscopy, TURBT, Left stent and left retrograde pyelogram. Patient is doing well, however he continues to have gross hematuria off CBI. Post Op day: 3 Review of Systems Cardiovascular: Cardiovascular: Denies chest pain Respiratory: Respiratory: Reports no additional respiratory complaints Gastrointestinal: Gastrointestinal: Denies abdominal pain, Denies nausea and Denies vomiting Genitourinary: Genitourinary: Reports hematuria and Denies flank pain Exam Resp: Effort & Inspection: normal respiratory effort Cardio: Rate: regular rate GI: GI Palp: Yes Soft to palpation and No Tenderness to palpation present (GI) Urinary Catheter: Urinary Catheter: patent and draining, urine pink and urine with clots Objective Data Vital Signs Vital Signs: Vital Signs - 24 hr 10/15/21 14:55 10/15/21 20:12 10/15/21 22:09 Temperature 97.8 F 98 F Pulse Rate 50 L 52 L Respiratory Rate 16 18 Blood Pressure 118/63 130/74 Pulse Oximetry 100 100 96 Oxygen Delivery Room Air 10/16/21 06:37 10/16/21 07:53 Temperature 98.4 F Pulse Rate 44 L 58 L Respiratory Rate 18 Blood Pressure 132/74 Pulse Oximetry 97 95 Oxygen Delivery Room Air Intake/Output Intake/Output: Intake & Output 10/13/21 10/14/21 10/15/21 10/16/21 23:59 23:59 23:59 23:59 Intake Total 1350 6290 3160 480 Output Total 3100 4250 9110 Balance -4200 2040 -6012 480 Meds/Results Medications: Active Medications Generic Name Dose Route Start Last Admin Trade Name Freq PRN Reason Stop Dose Admin Hydrocodone Bitart/Acetaminophen 1 tab 10/13/21 11:35 Hydrocodone/Acetaminophen (*Crx) 5-325 Mg Tablet PO Q4H PRN Pain Rated 1-6 Cephalexin HCl 500 mg 10/14/21 09:00 10/16/21 08:46 Cephalexin 500 Mg Capsule PO 500 mg QID TAMRA Administration Docusate Sodium 100 mg 10/13/21 17:00 10/16/21 08:46 Docusate Sodium 100 Mg Capsule PO 100 mg BID TAMRA Administration Hyoscyamine 0.125 mg 10/13/21 11:35 Hyoscyamine Sulfate 0.125 Mg Tablet SUBLINGUAL Q6H PRN Bladder Spasm Levothyroxine Sodium 75 mcg 10/14/21 06:30 10/16/21 06:54 Levothyroxine Sodium 75 Mcg Tablet PO 75 mcg DAILY@0630 TAMRA Administration Lisinopril 40 mg 10/13/21 11:40 10/16/21 08:47 Lisinopril 20 Mg Tablet PO 40 mg QAM TAMRA Administration Metformin HCl 1,000 mg 10/13/21 17:00 10/16/21 08:47 Metformin Hcl 500 Mg Tablet PO 1,000 mg BID TAMRA Administration Morphine Sulfate 2 mg 10/13/21 11:35 Morphine Sulfate (*Crx) 2 Mg/Ml Inj IV PUSH Q2H PRN Pain Rated 7-10 Naloxone HCl 0.1 mg 10/13/21 11:35 Naloxone Hcl 0.4 Mg/Ml Vial IV PUSH Q2M PRN Opiate Reversal Ondansetron HCl 4 mg 10/13/21 11:35 Ondansetron Inj 4 Mg/2 Ml Vial IV PUSH Q12H PRN Nausea And Vomiting Simvastatin 40 mg 10/13/21 11:40 10/16/21 08:47 Simvastatin 20 Mg Tablet PO 40 mg DAILY TAMRA Administration Radiology Results: ITS Impressions Retrograde Pyelogram 10/13/21 10:00 IMPRESSION: 1. Left internal ureteral stent placement. Please refer to real-time procedural findings for details. Labs Labs: Laboratory Results - last 24 hr 10/15/21 10/16/21 10/16/21 16:34 08:06 11:52 POC Capillary Glucose 91 137 H 97
[2021-10-16 14:00] VITALS: BP 126/69; PULSE 56; RESP 18; TEMP 36.3; O2SAT 100
[2021-10-16 16:39] LABS: Glucose Point of Care 132 mg/dl (65-105)
== END 2021-10-16 18:05 | disposition home or self-care (01) | DRG 658 ==
PROVIDERS: Admitting Provider Urology; PCP Internal Medicine; Visit Provider Urology
PROC: 0TBB8ZZ Excision of Bladder, Via Natural or Artificial Opening Endoscopic (ICD-10-PCS; principal; 2021-10-13 09:30)
PROC: 0TBB8ZX Excision of Bladder, Via Natural or Artificial Opening Endoscopic, Diagnostic (ICD-10-PCS; CPT 52352; 2021-10-13 09:30)
DX: C67.9 Malignant neoplasm of bladder, unspecified (principal); R31.0 Gross hematuria; E11.22 Type 2 diabetes mellitus with diabetic chronic kidney disease; I12.9 Hypertensive chronic kidney disease with stage 1 through stage 4 chronic kidney disease, or unspecified chronic kidney disease; N18.30 Chronic kidney disease, stage 3 unspecified; H40.9 Unspecified glaucoma; E03.9 Hypothyroidism, unspecified; E78.5 Hyperlipidemia, unspecified
CPT/HCPCS: 74178; 74420; 82948; 88305; A9270; C1758; C1769; C2617; G0378; J0360; J0690; J1100; J1885; J2250; J2405; J2704; J3010; J7050; J7120; Q9967

== ENCOUNTER 2021-11-17 00:10 | Day surgery (SDC) | payer OTHER, SELFPAY ==
--- NOTE | 2021-11-12 09:54 | PC.NURSE ---
Report to the Outpatient Waiting Room, entrance under the green pavilion located off [facility], at time __0930 on date _11/17/21 . OR Time: ___1130 . - You and your visitor will be asked a series of questions to screen for COVID 19 for your protection. - Only one visitor is allowed at this time. - The patient visitor is requested to leave or wait in car when not with patient. - A mask is required within the hospital. Patients may have clear liquids (water, carbonated beverages, clear teas, apple juice) until 3 hours prior to surgery with a maximum of 20 ounces. - No food from midnight until time of surgery - Infants may have breast milk until 4 hours before surgery, infant formula 6 hours prior to surgery. - Children will be allowed to drink immediately following surgery. If applicable, please bring a bottle or sippy cup to assist with drinking. Juice, water, soda, and popsicles are readily available. For infants on formula, please bring formula the day of surgery. Pacifiers are allowed. Take the following medications with a SIP of water the morning of surgery: _EYE DROP,LEVOTHYROXINE Medications to discontinue per physician ___ALL VITAMANS AND SPPLEMENTS 3 DAYS PRE OP Date to take last dose_11/13/21 Please no make-up, nail [place], hairspray, perfume, deodorant, or body powder the day of surgery. No jewelry (including any body piercings) or valuables the day of surgery, leave them at home. Please take a shower or bath the night before, or the morning of, surgery with an antibacterial soap. Wear comfortable, loose fitting clothing. Children are encouraged to wear pajamas. - Jewelry must be removed prior to entering the operating room. Rings and piercings that are not removed may be cut off. - The hospital will not accept responsibility for valuables. - Please leave all valuables, including medications, at home the day of surgery. If you are going home after surgery, a licensed food mobile driver must drive you home. - NO public transportation without another adult. - We recommend that an adult stay with you for 24 hours following discharge. - We also recommend that you do not drive, make important decision, drink alcoholic beverages, or take any drugs that were not prescribed by your health care provider for at least 24 hours after your discharge time. For Pediatric surgeries, we recommend two adults accompany the child home (only one inside the building at this time). Follow any additional instructions given to you from your surgeon. If you or anyone in your household have experienced Covid symptoms in the past week, please notify your surgeon or the nurse liaison at the phone number below for possible testing. Telephone instructions given to PATIENT and asked if any additional questions and then verbalized understanding. Patient advised to call surgeon office or pre surgery nurse liaison [phone] if any additional questions.
[2021-11-12 10:05] VITALS: BMI 24.6
[2021-11-17] VITALS (15 sets, daily range): BP systolic 105–168; BP diastolic 58–86; PULSE 44–59; RESP 11–20; TEMP 35.9–36.6; O2SAT 93–100
--- NOTE | ~2021-11-17 | XR_ITS ---
EXAMINATION: XR fluoroscopy no charge DATE: 11/17/2021 12:10 INDICATION: Left internal ureteral stent removal. Cystoscopy. TECHNIQUE: Single fluoroscopic scattered images of the mid to lower abdomen was obtained during proce dure performed by Dr. Schmitz. Radiologist was not present for the imaging or procedure. The amount of fluoroscopy time used during this procedure was 0.1 minutes. COMPARISON: None. FINDINGS: The uncoiled proximal tip of a left internal ureteral stent projects over the region of the ureterope lvic junction. Normal bowel gas pattern. IMPRESSION: 1. Uncoiled proximal tip of a left intrarenal stent in the region of the left ureterovesicular juncti on. See procedure note for further detail. Reviewed, dictated and finalized at location B. IMPRESSION: 1. Uncoiled proximal tip of a left intrarenal stent in the region of the left u reterovesicular junction. See procedure note for further detail.
--- NOTE | 2021-11-17 07:47 | WPDANESEPPF ---
Anes - Initial Pre Proc Eval Procedure: Operation Date: 11/17/21 11:30 Proposed Procedures p Cystoscopy, Left Retrograde Pyelogram, Left Ureteroscopy, Left Stent Removal - Eugene Schmitz MD s Possible Trans Urethral Resection Bladder Tumor - Eugene Schmitz MD Date/Time: 11/17/21 07:47 Surgeon: Eugene Schmitz MD Pre Op Diagnosis: bladder cancer Patient Data Age: 66 Gender: M Height: 1.73 m Weight: 73.5 kg Allergies Allergy/AdvReac Type Severity Reaction Status Date / Time No Known Allergies Allergy Verified 11/17/21 10:10 Home Medications Medication Instructions Recorded Confirmed Type ascorbic acid (vitamin C) 1,000 mg 1 gm PO DAILY 04/19/19 11/17/21 History tablet brinzolamide 1 %-brimonidine 0.2 % 1 drop ophthalmic (eye) BID 04/19/19 11/17/21 History eye drops,suspension (Simbrinza) lutein 25 mg-zeaxanthin 5 mg 1 cap PO DAILY 04/19/19 11/17/21 History capsule magnesium 250 mg tablet 250 mg PO DAILY 04/19/19 11/17/21 History zinc gluconate 100 mg tablet 100 mg PO DAILY 04/19/19 11/17/21 History cholecalciferol (vitamin D3) 50 50 mcg PO DAILY 10/18/19 11/17/21 History mcg (2,000 unit) capsule travoprost 0.004 % eye drops 1 drp EACH EYE HS 02/18/21 11/17/21 History simvastatin 40 mg tablet 40 mg PO DAILY #90 tabs 06/09/21 11/17/21 Rx metformin 500 mg tablet 1,000 mg PO BID #360 tabs 06/30/21 11/17/21 Rx fenofibrate 160 mg tablet 160 mg PO DAILY #90 tabs 08/07/21 11/17/21 Rx levothyroxine 75 mcg tablet 75 mcg PO QAM 10/07/21 11/17/21 History lisinopril 40 mg tablet 40 mg PO QAM 10/07/21 11/17/21 History hyoscyamine sulfate 0.125 mg 0.125 mg sublingual Q6H PRN 10/15/21 11/17/21 Rx disintegrating tablet (Anaspaz) Bladder Spasm #20 tabs Patient hx anesthesia problems: none Family hx anesthesia problems: none Results Review: All pre-operative results and documents have been reviewed as part of the pre-operative evaluation. [facility] Past Medical History Medical History (Updated 10/12/21 @ 13:45 by Dieter Randolph MD) CKD (chronic kidney disease) stage 3, GFR 30-59 ml/min Diabetes Dyslipidemia Essential hypertension Glaucoma Hematuria Hypothyroidism Lesion of bladder Family History Family History Mother Diabetes mellitus Family history of glaucoma Hypertension Family history of malignant neoplasm Patient's mother is , Onset Age: 78 Father Family history of elevated blood lipids Family history of Parkinson's disease Grandparent Malignant neoplasm of prostate Family history of coronary artery disease Social History Social History Smoking status: Never smoker Second hand tobacco smoke exposure: No Alcohol intake: current Drinks per week: 1 Substance use: never Living arrangements: alone Spiritual care concerns: No Anes - Eval Final PreProcedure Day of Procedure 11/17/21 07:47 Patient weight: normal Heart: regular rate and rhythm Lungs: clear to auscultation Airway: Mallampati scale class II Neurological: alert and oriented Last oral intake: >/= 8 hours ASA classification: III Emergent: no Anesthetic plan: proceed Anesthesia type and monitoring: general LMA and standard monitoring Results Review: All pre-operative results and documents have been reviewed as part of the pre-operative evaluation. Informed Consent: The patient's anesthetic plan and its attendant risks and benefits were discussed with the patient/family/POA. Questions were solicited and answers provided to the satisfaction of the patient/family/POA.
[2021-11-17] MEDS: LACTATED RINGERS 1,000 ML 30 ML IV CONT (10:25)
--- NOTE | 2021-11-17 10:27 | WPDHPUPDATE1 ---
History and Physical Update Update Date/Time: 11/17/21 10:27 History and Physical has been reviewed, including an updated exam of the patient. There are NO changes in the patient's condition. Risks, benefits, and alternatives have been discussed and questions answered. Patient agrees to proceed with procedure.
[2021-11-17 10:29] LABS: Glucose Point of Care 115 mg/dl (65-105)
[2021-11-17] MEDS: ceFAZolin 2 GM/D5W 50 ML 2 GM/50 ML BAG IVPB (11:32)
[2021-11-17] MEDS: LIDOCAINE HCL 2% GEL UROJET 10 ML PKG MUCOUS MEM (11:52)
--- NOTE | 2021-11-17 12:11 | P.OP_ITS ---
Procedure Note - Detailed Date of Procedure 11/17/21 Pre-op Diagnosis bladder cancer Post-op Diagnosis Same Procedure Performed Cystoscopy with left stent removal, left distal ureteroscopy, transurethral resection of bladder lesion with fulguration, Maier placement Surgeon Eugene Schmitz MD Anesthesia General Description of Procedure Patient was taken to the operative suite and correctly identified. Once anesthesia was obtained he was placed in dorsal lithotomy position and prepped and draped usual sterile fashion. Ninety Australian scope inserted the bladder. He does have quite a bit of edema from the prior resection and from the indwelling stent. The area that was resected is still healing and this concluded with slight bit of old clot. I grasped the stent and brought out to meatus. A guidewire was inserted through the stent. The rigid ureteral scope was then inserted into the orifice. There were no evidence of residual tumor at this time. This point the ureteral scope was exchanged out for resectoscope sheath. We scraped the clot off the areas that we had seen it. We then used the ball electrode to fulgurate the area. We also resected some of the irregularity along the left bladder neck area. This was sent for analysis. Sick 18 Australian 3 was then placed after 2% lidocaine was inserted into the urethra. 15 cc were placed in balloon. This was connected to continuous bladder irrigation. Patient is taken recovery stable condition. He will be admitted for CBI. Further recommendation will be made pending his path results Drains Yes Packing No Pathology Yes Complications No immediate complications Condition Stable Disposition PACU
[2021-11-17 12:28] LABS: Glucose Point of Care 114 mg/dl (65-105)
[2021-11-17] MEDS: fentaNYL CITRATE INJ (*CRX) 100 MCG/2 ML VIAL 25 MCG IV PUSH ×8 (12:56→13:52)
--- NOTE | 2021-11-17 14:44 | ADMGEN ---
This patient, Delano Kyle, was admitted to Medical Room 255-. Patient/family oriented to hospital policies and general routines including ID bracelet, bed and alarms, visiting hours, pain management, procedures, bathroom and other care routines, personal items, smoking policy, room service/diet, and visiting hours. Information on how to activate the Rapid Response Team has been discussed. Patient/Family are encouraged to report perceived risks to care and to ask questions if they do not understand what they are told or what they should do.
[2021-11-17] MEDS: DOCUSATE SODIUM 100 MG CAPSULE PO (16:26)
[2021-11-17] MEDS: metFORMIN HCL 500 MG TABLET 1000 MG PO (16:26)
[2021-11-17 21:28] LABS: Glucose Point of Care 287 mg/dl (65-105)
[2021-11-18 02:11] VITALS: BP 114/61; PULSE 74; RESP 12; TEMP 36.4; O2SAT 98
[2021-11-18] MEDS: LEVOTHYROXINE SODIUM 75 MCG TABLET PO (05:21)
[2021-11-18 05:30] VITALS: BP 119/63; PULSE 57; RESP 16; TEMP 36.4; O2SAT 98
[2021-11-18 07:39] LABS: Glucose Point of Care 133 mg/dl (65-105)
[2021-11-18] MEDS: CEPHALEXIN 500 MG CAPSULE PO ×2 (08:49→12:04)
[2021-11-18] MEDS: SIMVASTATIN 20 MG TABLET 40 MG PO (08:49)
[2021-11-18] MEDS: metFORMIN HCL 500 MG TABLET 1000 MG PO (08:49)
[2021-11-18] MEDS: DOCUSATE SODIUM 100 MG CAPSULE PO (08:49)
[2021-11-18] MEDS: lisinopriL 20 MG TABLET 40 MG PO (08:50)
[2021-11-18 08:51] VITALS: BP 118/62
--- NOTE | 2021-11-18 09:05 | WPDANESPN ---
Anes - Prog Note Post-Op Date/Time: 11/18/21 09:05 Vital Signs: Last Vital Signs Temp 36.4 C L 11/18/21 05:30 Pulse 57 L 11/18/21 05:30 Resp 16 11/18/21 05:30 BP 118/62 11/18/21 08:51 Pulse Ox 98 11/18/21 05:30 O2 Del Method Room Air 11/17/21 20:00 O2 Flow Rate 6 11/17/21 12:45 Pain Score (VAS): 0 I/O: Intake & Output 11/17/21 11/18/21 11/18/21 23:59 07:59 15:59 Intake Total 290 600 Output Total 500 1475 Balance -210 -1475 600 11/17/21 11/17/21 11/17/21 10:26 12:19 20:00 POC Capillary Glucose 115 H 114 H 287 H 11/18/21 07:19 POC Capillary Glucose 133 H Patient Feedback: Patient satisfied with anesthetic care.
[2021-11-18 09:55] VITALS: BP 119/64; PULSE 56; RESP 16; TEMP 36.7; O2SAT 99
[2021-11-18 11:25] LABS: Glucose Point of Care 175 mg/dl (65-105)
--- NOTE | 2021-11-18 12:20 | WPDUROPN2 ---
Progress Note: A&P Assessment and Plan (1) BPH (benign prostatic hyperplasia): Code(s): N40.0 - Benign prostatic hyperplasia without lower urinary tract symptoms Status: Acute Assessment and Plan: Patient will be discharged home this afternoon with his hendricks until Tuesday, then we will remove it in the office and do a voiding trial. Subjective Subjective Date/Time Seen: 11/18/21 12:20 Cystoscopy, left stent removal, left distal ureterosocpy, TURP with fulguration and hendricks placement. The patient is doing well, his urine is pink to dark yellow off CBI, he is tolerating activity and diet and denies pain. Post Op day: 1 Review of Systems Cardiovascular: Cardiovascular: Reports no additional cardiovascular complaints Respiratory: Respiratory: Reports no additional respiratory complaints Gastrointestinal: Gastrointestinal: Denies abdominal pain, Denies nausea and Denies vomiting Genitourinary: Genitourinary: Reports hematuria and Denies flank pain Exam Const: General: cooperative and comfortable Resp: Effort & Inspection: normal respiratory effort Cardio: Rate: bradycardic GI: GI Palp: Yes Soft to palpation and No Tenderness to palpation present (GI) : General: No no CVA tenderness Urinary Catheter: Urinary Catheter: patent and draining and urine dark Extrem: Right lower extremity: no edema Left lower extremity: no edema Objective Data Vital Signs Vital Signs: Vital Signs - 24 hr 11/17/21 13:00 11/17/21 13:15 11/17/21 13:30 Temperature Pulse Rate 48 L 49 L 48 L Respiratory Rate 12 12 12 Blood Pressure 166/86 H 168/81 H 166/82 H Pulse Oximetry 100 97 96 Oxygen Delivery Room Air Room Air Room Air Oxygen Flow Rate 11/17/21 13:45 11/17/21 14:00 11/17/21 12:30 Temperature Pulse Rate 48 L 50 L 48 L Respiratory Rate 12 12 12 Blood Pressure 164/81 H 152/79 H 158/84 H Pulse Oximetry 96 93 100 Oxygen Delivery Room Air Room Air Simple Face Mask Oxygen Flow Rate 6 11/17/21 12:45 11/17/21 15:04 11/17/21 14:20 Temperature 97.4 F L Pulse Rate 48 L 49 L Respiratory Rate 12 16 Blood Pressure 164/83 H 166/77 H Pulse Oximetry 100 98 Oxygen Delivery Simple Face Mask Room Air Oxygen Flow Rate 6 11/17/21 14:35 11/17/21 15:05 11/17/21 16:05 Temperature 96.6 F L 97.5 F L 97.6 F Pulse Rate 50 L 50 L 57 L Respiratory Rate 16 14 14 Blood Pressure 151/78 H 168/79 H 164/69 H Pulse Oximetry 97 100 100 Oxygen Delivery Oxygen Flow Rate 11/17/21 20:40 11/17/21 20:00 11/17/21 23:24 Temperature 97.9 F 97.9 F Pulse Rate 59 L 55 L Respiratory Rate 16 16 Blood Pressure 120/62 105/58 L Pulse Oximetry 97 98 Oxygen Delivery Room Air Oxygen Flow Rate 11/18/21 02:11 11/18/21 05:30 11/18/21 08:51 Temperature 97.5 F L 97.5 F L Pulse Rate 74 57 L Respiratory Rate 12 16 Blood Pressure 114/61 119/63 118/62 Pulse Oximetry 98 98 Oxygen Delivery Oxygen Flow Rate 11/18/21 09:55 11/18/21 08:47 Temperature 98.0 F Pulse Rate 56 L Respiratory Rate 16 Blood Pressure 119/64 Pulse Oximetry 99 Oxygen Delivery Room Air Oxygen Flow Rate Intake/Output Intake/Output: Intake & Output 11/15/21 11/16/21 11/17/21 11/18/21 23:59 23:59 23:59 23:59 Intake Total 3640 600 Output Total 4480 5345 Balance -0960 -532 Meds/Results Medications: Active Medications Generic Name Dose Route Start Last Admin Trade Name Freq PRN Reason Stop Dose Admin Hydrocodone Bitart/Acetaminophen 1 tab 11/17/21 14:07 Hydrocodone/Acetaminophen (*Crx) 5-325 Mg Tablet PO Q4H PRN Pain Rated 1-6 Cephalexin HCl 500 mg 11/18/21 09:00 11/18/21 12:04 Cephalexin 500 Mg Capsule PO 500 mg QID TAMRA Administration Docusate Sodium 100 mg 11/17/21 17:00 11/18/21 08:49 Docusate Sodium 100 Mg Capsule PO 100 mg BID TAMRA Administration Hyoscyamine 0.125 mg 11/17/21 14:07 Hyoscyamine Sulfate 0.125 Mg Tablet SUBLINGUA
== END 2021-11-18 14:00 | disposition home or self-care (01) ==
LOC: ANHSURGERY 09:23 → ANH2MED 14:38
PROVIDERS: PCP Internal Medicine; Visit Provider Urology
PROC: (CPT 52352; principal; 2021-11-17 11:30)
PROC: 0TBB8ZZ Excision of Bladder, Via Natural or Artificial Opening Endoscopic (ICD-10-PCS; CPT 52234; 2021-11-17 11:30)
DX: C67.5 Malignant neoplasm of bladder neck (principal); I12.9 Hypertensive chronic kidney disease with stage 1 through stage 4 chronic kidney disease, or unspecified chronic kidney disease; E11.22 Type 2 diabetes mellitus with diabetic chronic kidney disease; N18.30 Chronic kidney disease, stage 3 unspecified; E78.5 Hyperlipidemia, unspecified; E03.9 Hypothyroidism, unspecified; H40.9 Unspecified glaucoma; Z79.84 Long term (current) use of oral hypoglycemic drugs
CPT/HCPCS: 52234; 82948; 88305; 88342; 99199; A9270; C1769; J0690; J1100; J2405; J2704; J3010; J7120

== ENCOUNTER 2022-05-06 09:50 | Outpatient (CLI) | payer OTHER, SELFPAY ==
[2022-05-06 11:12] LABS: Basophils Absolute Auto 0.1 K/mm3 (0.0-0.1); Basophils Percent Auto 1.2 % (0.2-1.2); Eosinophils Absolute Auto 0.1 K/mm3 (0-0.3); Eosinophils Percent Auto 1.6 % (0-4.4); Hematocrit 44.1 % (42.0-52.0); Immature Granulocyte Absolute 0.09 K/mm3 (0.00-0.031); Immature Granulocyte Percent A 1.3 % (0-0.5); Lymphocytes Absolute Auto 2.06 K/mm3 (0.9-3.2); Lymphocytes Percent Auto 29.9 % (18.3-44.2); Mean Corpuscular HGB Conc 31.7 g/dl (32-36); Mean Corpuscular Hemoglobin 28.7 pg (26-34); Mean Corpuscular Volume 90.6 fl (80-100); Mean Platelet Volume 9.8 fl (7.4-10.4); Monocytes Absolute Auto 0.7 K/mm3 (0.1-0.6); Monocytes Percent Auto 9.9 % (2.6-8.5); Neutrophils Absolute Auto 3.9 K/mm3 (1.3-6.7); Neutrophils Percent Auto 56.1 % (45.5-73.1); Platelet Count Result 254 k/mm3 (150-375); Red Blood Count 4.87 M/mm3 (4.6-6.20); Red Cell Distribution Width 12.5 % (11.5-14.5); White Blood Count 6.9 K/mm3 (4.5-10.0)
[2022-05-06 11:13] LABS: INR 1.1; Prothrombin Time 13.7 Seconds (11.1-14.7)
[2022-05-06 11:14] LABS: Partial Thromboplastin Time 27.2 SECONDS (22.3-36.8)
[2022-05-06 11:17] LABS: Anion Gap 6 mmol/L (8-16); Blood Urea Nitrogen 17 mg/dL (9-20); Calcium 9.2 mg/dL (8.4-10.2); Carbon Dioxide 29 mmol/L (22-30); Chloride 104 mmol/L (98-107); Estimated Glomerular Filt Rate 60; Glucose 119 mg/dL (65-110); Potassium 4.3 mmol/L (3.4-5.0); Sodium 139 mmol/L (137-145)
== END 2022-05-06 09:51 | disposition home or self-care (01) ==
PROVIDERS: PCP Family Medicine; Visit Provider Urology
DX: C67.9 Malignant neoplasm of bladder, unspecified (principal); Z01.818 Encounter for other preprocedural examination
CPT/HCPCS: 36415; 80048; 85025; 85610; 85730; 87086

== ENCOUNTER 2022-05-11 06:53 | Day surgery (SDC) | payer OTHER, SELFPAY ==
--- NOTE | 2022-05-05 15:24 | PC.NURSE ---
Report to the Outpatient Waiting Room, entrance under the green pavilion located off [facility], at time __07 on date _05/11/22 . Planned Procedure Time: __914 . Time changes happen often and if your time is changed the preop area will call you the afternoon before. - You and your visitor will be asked to self-screen and do not enter if you have any COVID symptoms. - Only one visitor is requested with a max of two and NO children visitors are allowed at this time. - The patient visitor may be requested to leave or wait in car when not with patient due to distancing restrictions. - A mask is optional within the hospital. Patients may have clear liquids (water, carbonated beverages, clear teas, apple juice) until 3 hours prior to surgery with a maximum of 20 ounces. - No food from midnight until time of surgery - Infants may have breast milk until 4 hours before surgery, infant formula 6 hours prior to surgery. - Children will be allowed to drink immediately following surgery. If applicable, please bring a bottle or sippy cup to assist with drinking. Juice, water, soda, and popsicles are readily available. For infants on formula, please bring formula the day of surgery. Pacifiers are allowed. Take the following medications with a SIP of water the morning of surgery: ___LEVOTHYROXINE, EYE DROPS Medications to discontinue per physician __ALL VITAMINS AND SUPPLEMENTS 3 DAYS PRE OP LAST DOSE 05/07/22 Date to take last dose Please no make-up, nail pashto, hairspray, perfume, deodorant, or body powder the day of surgery. No jewelry (including any body piercings) or valuables the day of surgery, leave them at home. Please take a shower or bath the night before, or the morning of, surgery with an antibacterial soap. Wear comfortable, loose fitting clothing. Children are encouraged to wear pajamas. - Jewelry must be removed prior to entering the operating room. Rings and piercings that are not removed may be cut off. - The hospital will not accept responsibility for valuables. - Please leave all valuables, including medications, at home the day of surgery. If you are going home after surgery, a licensed taxicab driver must drive you home. - NO public transportation without another adult if you receive anesthesia. - We recommend that an adult stay with you for 24 hours following discharge. - We also recommend that you do not drive, make important decision, drink alcoholic beverages, or take any drugs that were not prescribed by your health care provider for at least 24 hours after your discharge time. For Pediatric surgeries, we recommend two adults accompany the child home. Follow any additional instructions given to you from your surgeon. If you or anyone in your household have experienced Covid symptoms in the past week, please notify your surgeon or the nurse liaison at the phone number below for possible testing. Telephone instructions given to __PATIENT and asked if any additional questions and then verbalized understanding. Patient advised to call surgeon office or pre surgery nurse liaison [phone] if any additional questions.
[2022-05-05 15:34] VITALS: BMI 25.8
[2022-05-11] VITALS (8 sets, daily range): BP systolic 136–166; BP diastolic 63–82; PULSE 45–51; RESP 10–16; TEMP 36.1; O2SAT 98–100
--- NOTE | 2022-05-11 07:03 | WPDANESEPPF ---
Anes - Initial Pre Proc Eval Procedure: Operation Date: 05/11/22 09:15 Proposed Procedures p Cystoscopy, Bladder Biopsy, - Eugene Schmitz MD s Possible Trans Urethral Resection Bladder Tumor - Eugene Schmitz MD Date/Time: 05/11/22 07:03 Surgeon: Eugene Schmitz MD Pre Op Diagnosis: bladder CA Patient Data Age: 67 Gender: M Height: 1.73 m Weight: 77.15 kg Allergies Allergy/AdvReac Type Severity Reaction Status Date / Time No Known Allergies Allergy Verified 05/11/22 07:46 Home Medications Medication Instructions Recorded Confirmed Type ascorbic acid (vitamin C) 1,000 mg 1 gm PO DAILY 04/19/19 05/11/22 History tablet brinzolamide 1 %-brimonidine 0.2 % 1 drop ophthalmic (eye) BID 04/19/19 05/11/22 History eye drops,suspension (Simbrinza) lutein 25 mg-zeaxanthin 5 mg 1 cap PO DAILY 04/19/19 05/11/22 History capsule magnesium 250 mg tablet 250 mg PO DAILY 04/19/19 05/11/22 History zinc gluconate 100 mg tablet 100 mg PO DAILY 04/19/19 05/11/22 History cholecalciferol (vitamin D3) 50 50 mcg PO DAILY 10/18/19 05/11/22 History mcg (2,000 unit) capsule travoprost 0.004 % eye drops 1 drp EACH EYE HS 02/18/21 05/11/22 History fenofibrate 160 mg tablet 160 mg PO DAILY #90 tabs 03/11/22 05/11/22 Rx levothyroxine 75 mcg tablet 75 mcg PO QAM #90 tabs 03/11/22 05/11/22 Rx lisinopril 40 mg tablet 40 mg PO QAM #90 tabs 03/11/22 05/11/22 Rx metformin 500 mg tablet 1,000 mg PO BID #360 tabs 03/11/22 05/11/22 Rx simvastatin 40 mg tablet 40 mg PO DAILY #90 tabs 03/11/22 05/11/22 Rx Patient hx anesthesia problems: none Family hx anesthesia problems: none Results Review: All pre-operative results and documents have been reviewed as part of the pre-operative evaluation. [facility] Past Medical History Medical History (Updated 05/11/22 @ 07:03 by Rocky Porter DO) Bladder cancer CKD (chronic kidney disease) stage 3, GFR 30-59 ml/min Diabetes Dyslipidemia Essential hypertension Glaucoma Hematuria Hypothyroidism Lesion of bladder Urothelial carcinoma of bladder Family History Family History Mother Diabetes mellitus Family history of glaucoma Hypertension Family history of malignant neoplasm Patient's mother is , Onset Age: 78 Father Family history of elevated blood lipids Family history of Parkinson's disease Grandparent Malignant neoplasm of prostate Family history of coronary artery disease Social History Social History Smoking status: Never smoker Second hand tobacco smoke exposure: No Alcohol intake: current Drinks per week: 1 Substance use: never Substance use type: does not use Living arrangements: alone Spiritual care concerns: No Anes - Eval Final PreProcedure Day of Procedure 05/11/22 07:03 Patient weight: overweight Heart: regular rate and rhythm Lungs: clear to auscultation Airway: Mallampati scale class II Neurological: alert and oriented Last oral intake: >/= 8 hours ASA classification: III Emergent: no Anesthetic plan: proceed Anesthesia type and monitoring: general LMA and standard monitoring Results Review: All pre-operative results and documents have been reviewed as part of the pre-operative evaluation. Informed Consent: The patient's anesthetic plan and its attendant risks and benefits were discussed with the patient/family/POA. Questions were solicited and answers provided to the satisfaction of the patient/family/POA.
[2022-05-11] MEDS: LACTATED RINGERS 1,000 ML 30 ML IV CONT (08:03)
[2022-05-11 08:04] LABS: Glucose Point of Care 129 mg/dl (65-105)
--- NOTE | 2022-05-11 09:54 | SUR.PREOP ---
pt informed delay in procedure.
--- NOTE | 2022-05-11 10:23 | PM.IMHP ---
H&P: HPI History of Present Illness Date/Time: 05/11/22 10:23 Chief Complaint: Bladder carcinoma Narrative: Pleasant 67-year-old male with history of prior resection of very large tumor. We then in November removed a stent in resected and fulgurated a recurrent area. He underwent a recent cystoscopy which revealed some irregularity near the left ureteral orifice at the prior resection site. He is now here for cysto with biopsy possible transurethral section of bladder tumor Review of Systems Review of Systems: All systems reviewed & are unremarkable except as noted in HPI and below PMFSH Past Medical History Medical History (Updated 05/11/22 @ 07:03 by Rocky Porter DO) Bladder cancer CKD (chronic kidney disease) stage 3, GFR 30-59 ml/min Diabetes Dyslipidemia Essential hypertension Glaucoma Hematuria Hypothyroidism Lesion of bladder Urothelial carcinoma of bladder Family History Family History Mother Diabetes mellitus Family history of glaucoma Hypertension Family history of malignant neoplasm Patient's mother is , Onset Age: 78 Father Family history of elevated blood lipids Family history of Parkinson's disease Grandparent Malignant neoplasm of prostate Family history of coronary artery disease Social History Social History Smoking status: Never smoker Second hand tobacco smoke exposure: No Alcohol intake: current Drinks per week: 1 Substance use: never Substance use type: does not use Living arrangements: alone Spiritual care concerns: No Meds Home Medications and Allergies Home Medications Medication Instructions Recorded Confirmed Type ascorbic acid (vitamin C) 1,000 mg 1 gm PO DAILY 04/19/19 05/11/22 History tablet brinzolamide 1 %-brimonidine 0.2 % 1 drop ophthalmic (eye) BID 04/19/19 05/11/22 History eye drops,suspension (Simbrinza) lutein 25 mg-zeaxanthin 5 mg 1 cap PO DAILY 04/19/19 05/11/22 History capsule magnesium 250 mg tablet 250 mg PO DAILY 04/19/19 05/11/22 History zinc gluconate 100 mg tablet 100 mg PO DAILY 04/19/19 05/11/22 History cholecalciferol (vitamin D3) 50 50 mcg PO DAILY 10/18/19 05/11/22 History mcg (2,000 unit) capsule travoprost 0.004 % eye drops 1 drp EACH EYE HS 02/18/21 05/11/22 History fenofibrate 160 mg tablet 160 mg PO DAILY #90 tabs 03/11/22 05/11/22 Rx levothyroxine 75 mcg tablet 75 mcg PO QAM #90 tabs 03/11/22 05/11/22 Rx lisinopril 40 mg tablet 40 mg PO QAM #90 tabs 03/11/22 05/11/22 Rx metformin 500 mg tablet 1,000 mg PO BID #360 tabs 03/11/22 05/11/22 Rx simvastatin 40 mg tablet 40 mg PO DAILY #90 tabs 03/11/22 05/11/22 Rx Allergies Allergy/AdvReac Type Severity Reaction Status Date / Time No Known Allergies Allergy Verified 05/11/22 07:46 Vital Signs Vital Signs - 24 hr 05/11/22 07:06 Temperature 36.1 C L Pulse Rate 49 L Respiratory Rate 16 Blood Pressure 149/67 H Pulse Oximetry 98 Oxygen Delivery Room Air Exam Const: General: cooperative HENMT: Head: normal to inspection Eyes: General: appearance normal, both eyes and all related structures Neck: Neck: normal visual inspection Chest: Chest palpation & inspection: normal inspection of the chest Resp: Effort & Inspection: normal respiratory effort Cardio: Rate: regular rate Rhythm: regular rhythm GI: Inspection: normal to inspection Assessment and Plan Assessment and plan (1) Bladder cancer: Code(s): C67.9 - Malignant neoplasm of bladder, unspecified Status: Acute Assessment and Plan: Cysto with transurethral section of bladder tumor
--- NOTE | 2022-05-11 10:25 | WPDHPUPDATE1 ---
History and Physical Update Update Date/Time: 05/11/22 10:25 History and Physical has been reviewed, including an updated exam of the patient. There are NO changes in the patient's condition. Risks, benefits, and alternatives have been discussed and questions answered. Patient agrees to proceed with procedure.
[2022-05-11] MEDS: ceFAZolin 2 GM/D5W 50 ML 2 GM/50 ML BAG IVPB (10:39)
[2022-05-11] MEDS: LIDOCAINE HCL 2% GEL UROJET 10 ML PKG MUCOUS MEM (10:54)
--- NOTE | 2022-05-11 11:05 | P.OP_ITS ---
Procedure Note - Detailed Date of Procedure 05/11/22 Pre-op Diagnosis bladder CA Post-op Diagnosis Same Procedure Performed Cystoscopy with transurethral resection of bladder tumor small less than 2 cm Surgeon Eugene Schmitz MD Anesthesia General Description of Procedure Patient is taken to the operative suite correctly identified. Once anesthesia was obtained was placed in dorsal lithotomy position and prepped draped usual sterile fashion. Twenty-four Kiswahili resectoscope sheath was inserted the suzette dder. He has some irregularity over the prior resection site on the left floor. We went ahead and resected this area and sent for path review. We fulgurated the base. There appeared to be good hemostasis. 2% viscous lidocaine was inserted urethra patient is taken recovery stable condition. He will call for path results in 1 week. Estimated Blood Loss 0 Drains No Packing No Pathology Yes Complications No immediate complications Condition Stable Disposition PACU
[2022-05-11 11:20] LABS: Glucose Point of Care 122 mg/dl (65-105)
--- NOTE | 2022-05-11 13:18 | SUR.PHASEII ---
Vitals are stable. Patient is unhooked from monitors and dressed. He's just waiting for daughter to pick him up.
== END 2022-05-11 13:23 | disposition home or self-care (01) ==
PROVIDERS: PCP Family Medicine; Visit Provider Urology
PROC: 0TBB8ZX Excision of Bladder, Via Natural or Artificial Opening Endoscopic, Diagnostic (ICD-10-PCS; CPT 52204; principal; 2022-05-11 09:15)
DX: N32.89 Other specified disorders of bladder (principal); Z85.51 Personal history of malignant neoplasm of bladder; I12.9 Hypertensive chronic kidney disease with stage 1 through stage 4 chronic kidney disease, or unspecified chronic kidney disease; N18.30 Chronic kidney disease, stage 3 unspecified; E03.9 Hypothyroidism, unspecified; H40.9 Unspecified glaucoma; E11.22 Type 2 diabetes mellitus with diabetic chronic kidney disease; E78.5 Hyperlipidemia, unspecified; Z79.84 Long term (current) use of oral hypoglycemic drugs
CPT/HCPCS: 52234; 36415; 80048; 82948; 85025; 85610; 85730; 87086; 88305; 88342; A9270; J0690; J2405; J2704; J3010; J7120